=== PATIENT | male | born 1990 | race Caucasian/White ===

== ENCOUNTER 2018-12-30 18:11 | Emergency (ER) | payer OTHER ==
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
[2018-12-30] MEDS ORDERED: NS 1,000 ML IV ONE ×2 (21:11)
[2018-12-30 21:34] LABS: PLATELET COUNT 221 10^3/uL (150-400)
[2018-12-30 22:50] VITALS: BP 136/88
== END 2018-12-30 22:58 ==
DX: S60.312A Abrasion of left thumb, initial encounter (principal); V49.00XA Driver injured in collision with unspecified motor vehicles in nontraffic accident, initial encounter; E86.9 Volume depletion, unspecified; Y92.410 Unspecified street and highway as the place of occurrence of the external cause
CPT/HCPCS: 80305; G0480